=== PATIENT | male | born 1995 | race Two or more races ===

== ENCOUNTER 2021-01-07 14:38 | Emergency (ER) | payer OTHER ==
[~2021-01-07] VITALS: Ht 188 cm; Wt 68.0 kg
[2021-01-07 15:21] VITALS: BP 108/55
--- NOTE | 2021-01-07 15:23 | NUR ---
Patient came in to the er c/o left hand pain s/p slipped and fall in the bathrrom. On room air, breathing evenly and unlabored. Kept comfortable, will continue to monitor accordingly.
[2021-01-07] MEDS ORDERED: TRAM50TA2 PO (17:47)
[2021-01-07] MEDS ORDERED: IBUP-1957 PO (17:47)
== END 2021-01-07 17:51 | disposition home or self-care (01) ==
LOC: ER 14:44
DX: S62.397A Other fracture of fifth metacarpal bone, left hand, initial encounter for closed fracture (principal); Z88.0 Allergy status to penicillin; Z79.899 Other long term (current) drug therapy; W01.0XXA Fall on same level from slipping, tripping and stumbling without subsequent striking against object, initial encounter; Y93.89 Activity, other specified; Y92.091 Bathroom in other non-institutional residence as the place of occurrence of the external cause; Y99.8 Other external cause status
CPT/HCPCS: 73110; 73130-TC